=== PATIENT | male | born 1985 ===

== ENCOUNTER 2022-10-13 10:20 | Emergency (ER) | payer SELFPAY ==
[2022-10-13] MEDS ORDERED: Ketorolac Tromethamine 30 MG/ML VIAL IVP SCH (12:00)
[2022-10-13] MEDS ORDERED: Ketorolac Tromethamine 30 MG/ML VIAL ONE (12:01)
== END 2022-10-13 12:52 | disposition home or self-care (01) ==
LOC: CSHERS 10:20
DX: M54.50 Low back pain, unspecified (principal); F17.210 Nicotine dependence, cigarettes, uncomplicated
CPT/HCPCS: 72100; 96372; J1885